=== PATIENT | male | born 1970 ===

== ENCOUNTER 2018-09-27 13:28 | Inpatient (IN) | payer SELFPAY ==
[~2018-09-27 13:28] MED LIST: ISOVUE-370 76%-LOCM 1 ML ONE; Iopamidol 370 76% 100 ML VIAL ONE
--- NOTE | 2018-09-27 13:54 | CT ---
CT HEAD WITHOUT IV CONTRAST COMPARISON: None HISTORY: Right-sided weakness. TECHNIQUE: Axial CT imaging at 5 mm intervals from vertex through skull base without contrast FINDINGS: There are low-density areas seen within the left basal ganglia with largest low-density area seen wit hin the anterior aspect left basal ganglia centered in the region of the anterior limb left internal capsule as well as anterior portion of the lentiform nucleus likely related to a lacunar inf arction of indeterminate age but possibly more recent in origin. There is also curvilinear area of diminished attenuation within the left anterior frontal lobe which also is likely due to an infarctio n of indeterminate age. Smaller low-density focus is present in the left lentiform nucleus related to a lacunar infarction of indeterminate age. No large acute cortical infarction, hemorrhage, mass ef fect, or midline shift is present. Artifact is seen in the region of the maki limiting adequate evaluation. Low-density areas seen in the inferior right basal ganglia probably due to dilated periva scular space versus remote lacunar infarction. The ventricular system is normal in size, shape, and position. Visualized paranasal sinuses are clear. Osseous structures appear intact. IMPRESSION: 1. Findings most likely attributable to infarctions in the left basal ganglia suggesting lacunar infa rctions of indeterminate age as described above in addition to indeterminate age infarction involving the left frontal lobe white matter. Although the exact ages of these infarctions is difficu lt to determine, findings are likely more recent in origin. However, MRI of the brain is suggested for further evaluation. 2. Above findings discussed Dr. Morales in the emergency department on 09/27/2018 at 1341 hours.
[2018-09-27] MEDS ORDERED: Heparin 10,000 UNITS/1 ML VIAL ONE (14:09)
--- NOTE | 2018-09-27 14:11 | CT ---
CTA of the head with and without IV contrast and 3-D reformatted imaging. CTA of the neck with IV contrast and 3-D reformatted imaging 3 D Volume Rendering: DATE: 09/27/2018 12:00 AM HISTORY: Right-sided weakness COMPARISON: Noncontrast CT head on 09/27/2018. FINDINGS: As noted on the noncontrast CT of the head, there is a low-density area involving the left basal gang trey and left anterior frontal lobe in the distribution of left middle cerebral artery compatible with infarction which is likely more recent in origin. Right: CCA:No significant stenosis. ICA:No significant stenosis. MCA:No significant stenosis. BOB:No significant stenosis. STEAM PRESS TENDER:No significant stenosis. LEFT: CCA:No significant stenosis. ICA:No significant stenosis. MCA:There is a filling defect seen within the distal M1 segment left middle cerebral artery suggestin g embolus/thrombus. There is contrast seen within the M2 and M3 segments of the left middle cerebral artery. BOB:No significant stenosis. STEAM PRESS TENDER:No significant stenosis. Vertebrobasilar System: Left Vertebral:No significant stenosis. Right Vertebral:No significant stenosis. Basilar:No significant stenosis. Minimal emphysematous changes are seen within the otherwise upper lobes bilaterally. IMPRESSION: 1. Filling defect within the distal M1 segment left middle cerebral artery suggesting thrombus/embolu s. 2. Infarction in the distribution of the left middle cerebral artery with low density area in the lef t basal ganglia and left anterior frontal lobe with a small low-density focus in the lentiform nucleus related to a lacunar infarction. These infarctions are likely more recent in origin. 3. Above findings discussed with Dr. Morales in the emergency department on 09/27/2018 at 1401 hours.
[2018-09-27 14:16] LABS: Hemoglobin 12.3 g/dL (14.0-18.0); Mean Corpuscular HGB CONC 33.9 g/dL (32.0-36.0); Mean Corpuscular Hemoglobin 38.4 pg (27.0-31.0); Mean Platelet Volume 7.8 fL (7.4-10.4); Platelet Count 220 thou/uL (130-400); RBC Distribution Width 14.2 % (11.5-14.5); Red Blood Cell (RBC) Count 3.21 mill/uL (4.70-6.10); White Blood Cell (WBC) Count 6.6 thou/uL (4.8-10.8)
[2018-09-27 14:21] LABS: INR-International Normal Ratio 1.2; PTT 29.4 SEC (22.9-36.1); Prothrombin Time 15.5 SEC (12.0-14.7)
[2018-09-27] MEDS ORDERED: Lidocaine 1% (PF) 30 ML VIAL ONE (14:28)
[2018-09-27 14:42] LABS: ALT (SGPT) 8 U/L (8-55); AST (SGOT) 21 U/L (5-34); Albumin 3.7 g/dL (3.5-5.0); Alkaline Phosphatase 79 U/L (40-150); Anion Gap 13 mmol/L (10-20); BUN (Urea Nitrogen) 9 mg/dL (8.9-20.6); Bilirubin, Total 0.6 mg/dL (0.2-1.2); Calc. Creatinine Clearance 0 mL/min (70-130); Calcium 8.7 mg/dL (7.8-10.44); Carbon Dioxide 28 mmol/L (22-29); Chloride 98 mmol/L (98-107); Estimated GFR-MDRD 90; Globulin 2.3 g/dL (2.4-3.5); Glucose 87 mg/dL (70-105); Potassium 4.5 mmol/L (3.5-5.1); Sodium 134 mmol/L (136-145)
[2018-09-27] MEDS ORDERED: Phenylephrine HCL 10 MG/ML VIAL ONE (14:47)
[2018-09-27] MEDS ORDERED: Nitroglycerin 100MG/250ML BOT 0 ML ONE (14:47)
[2018-09-27 14:53] LABS: #Basophils 0.1 thou/uL (0.0-0.2); #Eosinphils 0.1 thou/uL (0.0-0.7); #Lymphocytes 1.5 thou/uL (1.20-3.40); #Monocytes 0.3 thou/uL (0.11-0.59); #Neutrophils 4.7 thou/uL (1.40-6.50); %Basophils 1.8 % (0.0-1.0); %Eosinophils 0.8 % (0.0-10.0); %Lymphocytes 22.3 % (21.0-51.0); %Monocytes 3.8 % (0.0-10.0); %Neutrophils 71.3 % (42.0-75.0); MDiff Complete? YES; Macrocytosis SLIGHT = 6-15 cells (100X) (0-5/hpf); Platelet Morphology Comment Appears Adequate
[2018-09-27] MEDS ORDERED: Fentanyl 100 MCG/2 ML VIAL ONE (15:01)
[2018-09-27] MEDS ORDERED: Communication Order-Pharmacy FS ONE ×2 (15:08→20:49)
[2018-09-27] MEDS ORDERED: Labetalol HCl 100 MG/20 ML VIAL SLOW IVP PRN (15:08)
--- NOTE | 2018-09-27 15:38 | PRG ---
DATE OF SERVICE: 09/27/2018 Mr. Alicea is a 48-year-old gentleman, who presented to the ER with aphasia and right hemiparesis. He had a noncontrast head CT, which was negative for hemorrhage. He had a CT angiogram, which showed a thrombus within the left middle cerebral artery. He was administered tPA in ER. He was then taken to the civil laboratory technician, where he underwent an initial conventional angiogram, which showed resolution of the clot by the time he had reached the civil laboratory technician. Therefore, there was no need for mechanical thrombectomy. We have no family available. He is unable to communicate in any effective way. As such, we have little to no known medical history at this point in time. We will now admit him to the ICU for observation. We will consult the hospitalist service for ongoing medical management. We will check a head CT in the morning to evaluate for post tPA hemorrhage or stroke. Job ID: [id number]
[2018-09-27 16:22] LABS: Anion Gap 12 mmol/L (10-20); BUN (Urea Nitrogen) 8 mg/dL (8.9-20.6); Calc. Creatinine Clearance 120 mL/min (70-130); Calcium 9.1 mg/dL (7.8-10.44); Carbon Dioxide 26 mmol/L (22-29); Chloride 102 mmol/L (98-107); Estimated GFR-MDRD Greater than 90; Glucose 95 mg/dL (70-105); Potassium 4.2 mmol/L (3.5-5.1); Sodium 136 mmol/L (136-145)
[2018-09-27 16:52] LABS: Amphetamine Detected (NotDetected); Barbiturates Screen Not Detected (NotDetected); Benzodiazepine Screen Not Detected (NotDetected); Cocaine Metabolite Screen Not Detected (NotDetected); Medtox Control Line Valid? VALID (VALID); Medtox Reader # READER 1; Methadone Not Detected (NotDetected); Methamphetamine Detected (NotDetected); Opiate Screen Not Detected (NotDetected); Oxycodone Screen Not Detected (NotDetected); Phencyclidine (PCP) Not Detected (NotDetected); THC/Cannabinoid Screen Not Detected (NotDetected); Tricyclic Screen Not Detected (NotDetected)
[2018-09-27] MEDS ORDERED: Acetaminophen 500 MG TAB PO PRN (16:57)
[2018-09-27] MEDS ORDERED: Ondansetron PF 4 MG/2 ML Vial IVP PRN (16:57)
[2018-09-27] MEDS: Sodium Chloride 0.9% 1,000 ML IV SCH (17:03)
--- NOTE | 2018-09-27 19:20 | CCL ---
RADIOLOGY PROCEDURE NOTE: DATE: SURGEON: Clive Jc M.D. MOLD CAPPER: None. INDICATION: Ischemic stroke. DIAGNOSIS: Left M1 thrombus. PROCEDURE: Cerebral angiography. ANESTHESIA: Local. TECHNIQUE: The patient was brought into the angiogram suite and placed on the table in the supine position. Both groins were prepped and draped in the usual sterile fashion. 1% lidocaine was used to inject the rig ht groin. A 5 Bruneian Micropuncture set was then used to gain access to the right common femoral arter y. Using the Seldinger technique, an 8 Bruneian sheath was placed. A 5 Bruneian diagnostic catheter passe d over a [employer] guidewire was then selectively placed into the left internal carotid artery where an AP and lateral angiogram was performed. The previously noted occlusion in the left MCA branch at the M1 segment has resolved with normal confucianist of flow into the distal vasculature with normal fill ing of the middle cerebral artery branches. No mechanical thrombectomy procedure was performed. The p rocedure came to an end without complication. The sheath was sewn into place secondary to recent admi nistration of TPA. IMPRESSION: The patient underwent successful angiography which revealed the presence of confucianist of flow into the left middle cerebral artery. No mechanical thrombectomy was performed.
[2018-09-27] MEDS ORDERED: Mag-Al 1200 mg/1200 mg/30 ML UDCUP PO PRN (20:49)
[2018-09-27] MEDS ORDERED: Docusate 100 MG CAP PO PRN (20:49)
--- NOTE | 2018-09-27 21:09 | CON ---
DATE OF CONSULTATION: HISTORY OF PRESENT ILLNESS: This is a 48-year-old gentleman, who is in the ICU. He presented with sudden onset of weakness early this morning with aphasia. Stroke alert was called. He was brought in by EMS. CT of head and CT of angio were done as outlined, showed what appeared to be a thrombus without any hemorrhage in the left middle cerebral artery. He underwent tPA as per protocol, seen by Neurosurgery, Dr. Clive Jc, went to the bolt labeler, but thrombus had since resolved. Now in the ICU. The patient is awake, alert, and responsive. In fact, he is able to move his right side appropriately. His speech is coming back somewhat. PAST MEDICAL HISTORY: He tells me past medical history. No history of diabetes or hypertension. PAST SURGICAL HISTORY: None. CHRONIC MEDICATION: None. ALLERGIES: NONE. SOCIAL HISTORY: Work, unknown at this time. Alcohol and tobacco, none. REVIEW OF SYSTEMS: Otherwise 10-point grossly unremarkable. PHYSICAL EXAMINATION: GENERAL: Awake, alert, and responsive. EXTREMITIES: As noted, moves all 4 extremities. VITAL SIGNS: Sats 96% on room air, pulse blood pressure 120/80, respirations 18. CHEST: No wheezing or crackles. CARDIAC: Normal S1 and S2. No gallops. ABDOMEN: No mass. LABORATORY DATA: Sodium 134. Otherwise lytes are normal. White count H and H are 12 and 36. IMPRESSION: Status post tPA for a right-sided weakness, secondary to left MCA thrombus. PLAN: Pulmonary Critical Care will follow while in the ICU. He is on nicardipine for blood pressure control measures. We will talk to Dr. alvarado as they arrive. Consultation note in the ICU, 70 minutes, 50% direct patient care. Job ID: [id number]
[2018-09-27] MEDS: Atorvastatin Calcium 40 MG TAB PO SCH (22:57)
--- NOTE | 2018-09-28 00:45 | CON ---
DATE OF CONSULTATION: 09/27/2018 REASON FOR CONSULTATION: Medical management. CHIEF COMPLAINT: Right-sided weakness. HISTORY OF PRESENT ILLNESS: The patient is a 48-year-old male with unknown past medical history, who presented to the ED via EMS with complaints of stroke. Per EMS, the patient was unable to speak when they arrived. EMS noted the patient had right-sided weakness, and was brought to the emergency room for further evaluation and treatment. CT scan of the brain was negative for any acute bleed. His NIH scale in the ER was 11 initially. CTA of the head and neck revealed a filling defect within the distal M1 segment left MCA suggesting thrombus/embolus. The patient was administered tPA. Dr. Jc took him to the laborer pipelines, where angiogram revealed resolution of the thrombus. He is seen immediately postoperatively in the CCU. The patient is easily arousable and is able to follow some commands and answer some questions appropriately, although does remain altered. Regarding his right-sided deficits, they are almost completely resolved. REVIEW OF SYSTEMS/PAST MEDICAL HISTORY/PAST SURGICAL HISTORY: Unable to be obtained at this time secondary to the patient's altered mental status. PHYSICAL EXAMINATION: VITAL SIGNS: Blood pressure 162/91, pulse is 64, O2 saturation 97% on room air, temperature 98. GENERAL: This is a thin male, who appears stated age, resting in bed in CCU, in no distress. HEENT: Head is atraumatic and normocephalic. NECK: Supple. Trachea is midline. No JVD. CV: S1 and S2. Regular rate and rhythm. No appreciable murmurs, rubs, or gallops. LUNGS: Regular respiratory rate and pattern, overall clear to auscultation bilaterally. ABDOMEN: Soft. Positive bowel sounds. EXTREMITIES: No edema, sheath is in place in right groin. NEUROLOGIC: The patient has grossly equal strength in his upper and lower extremities bilaterally. His NIH Stroke Scale is 9 at this time. LABORATORY DATA: White blood cell count 6.6, hemoglobin 12.3, hematocrit 36.3, platelets are 220. PT 15.5, INR 1.2, PTT 29.4. Sodium 136, potassium 4.2, chloride 102, anion gap 12, creatinine 0.73. AST, ALT, alkaline phosphatase all within normal limits. Troponin less than 10. Urine drug screen showed positive for amphetamines and methamphetamines. ASSESSMENT: 1. Acute left middle cerebral artery cerebrovascular accident with thrombus/ embolus evident per CTA, status post tPA administration. Resolution of thrombus per angio. 2. Hypertension. 3. Tox screen positive for amphetamines/methamphetamines. PLAN: At this time, we will continue p.r.n. labetalol and nicardipine for hypertension following permissive hypertension parameters. Dysphagia screening prior to any oral medication administration. Start statin, and ASA after appropriate hold post tPA. No blood draws x24 hours status post tPA. Neurology has been consulted, and we will also consult stroke team. CT brain in am. Further recommendations based on hospital course. Job ID: [id number] VAISHALI
[2018-09-28] MEDS: Sodium Chloride 0.9% 1,000 ML IV SCH ×2 (01:43→14:03)
[2018-09-28 04:48] LABS: #Eosinphils 0.1 thou/uL (0.0-0.7); #Lymphocytes 1.3 thou/uL (1.20-3.40); #Monocytes 0.3 thou/uL (0.11-0.59); %Basophils 0.1 % (0.0-1.0); %Eosinophils 1.2 % (0.0-10.0); %Lymphocytes 16.8 % (21.0-51.0); Hemoglobin 13.2 g/dL (14.0-18.0); Mean Corpuscular Hemoglobin 38.4 pg (27.0-31.0); Mean Platelet Volume 7.9 fL (7.4-10.4); Platelet Count 243 thou/uL (130-400); RBC Distribution Width 14.1 % (11.5-14.5); Red Blood Cell (RBC) Count 3.43 mill/uL (4.70-6.10); White Blood Cell (WBC) Count 7.6 thou/uL (4.8-10.8)
[2018-09-28 05:07] LABS: Cardiac Risk 4.3 (Less than 4.5)
--- NOTE | 2018-09-28 07:52 | CT ---
PRELIMINARY REPORT/[facility]/EMERGENCY AFTER HOURS PROCEDURE: Addendum created by Fidel Jeffery MD on 09/28/2018 4:35 AM Central Time ( & [place]) Findings discu ssed with Leisa Cortez RN at time of interpretation. Initial Report created on 09/28/2018 4:18 AM [place] tral Time ( & Camila) EXAM: CT Head Without Contrast EXAM DATE/TIME: 09/28/2018 3:00 AM CLINICAL HISTORY: 48 years old, male; Abnormal findings; Abnormal radiologic findings of head/skull; Not specified; Patient HX: F/u CVA PT. Tpa given TECHNIQUE: Imaging protocol: Axial computed tomography images of the head without contrast. COMPARISON: CT Brain WO Con 09/27/2018 1:33 PM FINDINGS: Brain: Stable mild multifocal edema in the left MCA territory consistent with subacute infarction. Stable subjectively hyperdense left M2 branch suggests clot. Subtle hyperdensity in the cortex of the left frontal lobe is suspicious for mild subarachnoid hemorrhage. Midline shift: No midline shift. Ventricles: Normal. No ventriculomegaly. Bones/joints: Unremarkable. No acute fracture. Sinuses: Visualized sinuses are unremarkable. No fluid levels. Mastoid air cells: Visualized mastoid air cells are well aerated. No mastoid effusion. Soft tissues: Unremarkable. IMPRESSION: 1. Stable mild multifocal edema in the left MCA territory consistent with subacute infarction. Stable subjectively hyperdense left M2 branch suggests clot. 2. Subtle hyperdensity in the cortex of the left frontal lobe is suspicious for mild subarachnoid hem orrhage. Thank you for allowing us to participate in the care of your patient. Dictated and Authenticated by: Fidel Jeffery MD 09/28/2018 4:18 AM Central Time ( & Camila) FINAL REPORT EMERGENCY AFTER HOURS CT BRAIN PERFORMED WITHOUT CONTRAST ENHANCEMENT: Date: 09/28/18 HISTORY: Follow-up CVA. Patient status post TPA. COMPARISON: Prior day's study. FINDINGS: Ventricular and cisternal system is within normal limits. Decreased attenuation of the left middle ce rebral artery territory consistent with a subacute infarct. No signs of intracerebral hemorrhage or e xtra-axial fluid collection. There is some slight increased attenuation to the M2 and sylvian branche s of the MCA which could indicate clot. IMPRESSION: 1. Findings suggesting a left MCA subacute infarct. 2. The question was raised of some subtle subarachnoid blood over the left frontal lobe. This is equ ivocal. Follow-up would be recommended. This report is in agreement with the preliminary report issued by [facility]. POS: [facility]
[2018-09-28] MEDS ORDERED: Sodium Chloride 0.65% Nasal 44 ML BOT EA NARE PRN (08:02)
[2018-09-28] MEDS ORDERED: Artificial Tears 18 DROP/0.9 ML EA EYE PRN (08:02)
[2018-09-28] MEDS ORDERED: Bisacodyl 10 MG SUPP PR PRN (08:02)
--- NOTE | 2018-09-28 08:03 | CT ---
CT OF THE BRAIN WITHOUT CONTRAST: Date: 09/28/18 COMPARISON: 09/28/18 at 0301 hours. HISTORY: Right-sided weakness. Patient given TPA yesterday. TECHNIQUE: Multiple contiguous axial images were obtained in a CT of the brain without contrast. FINDINGS: There is hypodensity in the left basal ganglia, unchanged. Hypodensity is also seen in the anterior a spect of the left MCA distribution. No intracranial hemorrhage or intraventricular hemorrhage is seen . No extra-axial fluid collection is seen. The calvarium and overlying soft tissues are unremarkable. The visualized paranasal sinuses are well aerated. IMPRESSION: Ongoing infarction in left MCA distribution without evidence of hemorrhagic conversion. POS: [facility]
--- NOTE | 2018-09-28 08:48 | PRG ---
DATE OF SERVICE: 09/28/2018 SUBJECTIVE: This morning, he is awake, responsive. He is not moving his right side. His CT brain this morning shows evidence of ongoing left MCA distribution infarct. OBJECTIVE: VITAL SIGNS: Blood pressure 142/89, pulse 101, temperature 98, respirations 14. CHEST: Decreased breath sounds. No wheezing. CARDIAC: Normal S1, S2. No gallops. ABDOMEN: No masses. LABORATORY DATA: He had a drug screen done, which shows amphetamines and methamphetamines. IMPRESSION: 1. Acute cerebrovascular accident, left-sided, with right-sided weakness. 2. Substance abuse. 3. Hypertension. PLAN: Pulmonary will follow in the ICU. Continue present supportive care. Start aspirin. We will follow while in the ICU. Job ID: [id number]
[2018-09-28] MEDS ORDERED: Aspirin 325 mg Enteric Coated Tablet PO SCH (09:00)
[2018-09-28] MEDS ORDERED: Aspirin 300 MG Suppository PR SCH (09:00)
[2018-09-28] MEDS: Aspirin 325 MG TAB PO SCH (09:03)
--- NOTE | 2018-09-28 11:30 | PDOC.PN ---
- Subjective Encounter Start Date: 09/28/18 Encounter Start Time: 07:15 -: old records requested/rev Patient seen and examined. No overnight events, pt has CVA and he was given TPA , he did not require mechanical thrombectomy - Objective MAR Reviewed: Yes Vital Signs & Weight: Vital Signs (12 hours) Temp Pulse Ox 09/28/18 09:00 98.7 F 09/28/18 08:00 98.2 F 100 09/28/18 05:00 98.5 F 09/28/18 04:00 98 09/28/18 02:00 98.4 F Weight Weight 151 lb 0.266 oz Most Recent Monitor Data Heart Rate from ECG 68 NIBP 105/66 NIBP BP-Mean 79 Respiration from ECG 19 SpO2 100 I&O: 09/27/18 09/28/18 09/29/18 06:59 06:59 06:59 Intake Total 904 0 Output Total 1100 200 Balance -196 -200 Result Diagrams: 09/28/18 03:30 09/27/18 15:58 Additional Labs: Accuchecks 09/27/18 13:34 POC Glucose 128 H Radiology Reviewed by me: Yes EKG Reviewed by me: Yes (nsr) Phys Exam - Physical Examination Constitutional: NAD HEENT: PERRLA, moist MMs, sclera anicteric Neck: no JVD, supple Respiratory: no wheezing, no rales, no rhonchi Cardiovascular: RRR, no significant murmur, no rub Gastrointestinal: soft, non-tender, no distention, positive bowel sounds Musculoskeletal: no edema, pulses present right side weakness, aphasia Lymphatic: no nodes Psychiatric: normal affect Skin: no rash, normal turgor Dx/Plan (1) Acute ischemic left middle cerebral artery (MCA) stroke Code(s): I63.512 - CEREB INFRC D/T UNSP OCCLS OR STENOS OF LEFT MID CEREB ART Status: Acute Comment: s/p TPA (2) Amphetamine abuse Code(s): F15.10 - OTHER STIMULANT ABUSE, UNCOMPLICATED Status: Acute (3) Macrocytic anemia Code(s): D53.9 - NUTRITIONAL ANEMIA, UNSPECIFIED Status: Acute - Plan cont current plan of care, PT/OT, speech therapy, DVT proph w/SCDs * neurology consulted * echo ordered * 24 hour in CCU after TPA * repeat CT brain today is showing evolving infract and no h'ge * no family bedside * sheath will be removed later today * medication reviewed as below * symptomatic treatment. Review of Systems - Review of Systems Other: unable to review as pt is aphasic and not following command well - Medications/Allergies Allergies/Adverse Reactions: Allergies Allergy/AdvReac Type Severity Reaction Status Date / Time No Known Allergies Allergy Unverified 09/27/18 16:04 Medications: Current Medications Acetaminophen (Tylenol) 1,000 mg PO Q6H PRN PRN Reason: Mild Pain (1-3) Al Hydroxide/Mg Hydroxide (Maalox) 30 ml PO QID-WM PRN PRN Reason: Dyspepsia Artificial Tears (Tears Naturale) 2 drop EA EYE PRN PRN PRN Reason: Dry Eyes Aspirin (Aspirin) 325 mg PO DAILY [facility] Last Admin: 09/28/18 09:03 Dose: Not Given Atorvastatin Calcium (Lipitor) 40 mg PO HS [facility] Last Admin: 09/27/18 22:57 Dose: Not Given Bisacodyl (Dulcolax) 10 mg [place] DAILYPRN PRN PRN Reason: Constipation Docusate Sodium (Colace) 100 mg PO BIDPRN PRN PRN Reason: Constipation Nicardipine HCl 25 mg/ Sodium (Chloride) 260 mls @ 0 mls/hr IVPB INF PRN; Protocol PRN Reason: SBP > 180 or DBP > 105 Sodium Chloride (Normal Saline 0.9%) 1,000 mls @ 80 mls/hr IV .[id number] [facility] Last Admin: 09/28/18 01:43 Dose: 1,000 mls Labetalol HCl (Normodyne) 10 mg SLOW IVP Q2H PRN PRN Reason: SBP > 180 or DBP > 105 Ondansetron HCl (Zofran) 4 mg IVP Q6H PRN PRN Reason: Nausea/Vomiting Sodium Chloride ([place] Nasal [place] 0.65%) 0 ml EA NARE QIDPRN PRN PRN Reason: Nasal Congestion Sodium Chloride (Flush - Normal Saline) 10 ml IVF Q12HR [facility] Last Admin: 09/28/18 09:02 Dose: 10 ml Sodium Chloride (Flush - Normal Saline) 10 ml IVF PRN PRN PRN Reason: Saline Flush
[2018-09-28] MEDS: Atorvastatin Calcium 40 MG TAB PO SCH (19:06)
--- NOTE | 2018-09-28 22:43 | CON ---
DATE OF CONSULTATION: 09/28/2018 CONSULTING PHYSICIAN: Hospitalist Service. IMPRESSION: Partial left middle cerebral artery stroke secondary to methamphetamine use status post tPA. PLAN: 1. Aspirin and a statin. 2. The patient can be moved to step-down floor. HISTORY OF PRESENT ILLNESS: Mr. Alicea is a 48-year-old man with a known history of drug use. He apparently was at [facility] not long ago with symptoms of a stroke. He left AMA. He presented again to us with complaints of aphasia and right-sided weakness. His CT angiogram did not show a lesion that was amenable to thrombectomy. He was administered tPA. He has been admitted to the intensive care unit. His echocardiogram showed a 50% to 55% ejection fraction. His followup CT showed a subcortical area of ischemia in the left deep MCA territory. His cholesterol level ratio was 4.3. PAST MEDICAL HISTORY: Otherwise unknown. FAMILY HISTORY: Unknown. SOCIAL HISTORY: Positive for drug use. ALLERGIES: NONE KNOWN. REVIEW OF SYSTEMS: Not obtainable due to his aphasia. PHYSICAL EXAMINATION: GENERAL: He is a thin, middle-aged man, lying in bed, in no distress. VITAL SIGNS: Blood pressure 130/66, pulse 67 and sinus rhythm. Saturations 99%. Respirations 15. HEENT: Pupils are equal. Conjunctivae clear. Oropharynx clear. Cranium, normocephalic and atraumatic. NECK: No lymphadenopathy. EXTREMITIES: No cyanosis or edema. NEUROLOGIC: He awakened to stimulation. He was unable to verbalize anything other than the word no. It is difficult to say whether he was comprehending commands or being obstinate. He had a right facial droop. There was right arm and leg weakness. Plantar response was upgoing on the right and downgoing on the left. No abnormal movements were seen. Gait was not testable. SUMMARY: This is a middle-aged man with left penetrator vessel MCA stroke status post tPA with residual neurologic deficits. His workup otherwise is unremarkable. I agree with your current care. Hopefully with time, his deficits will improve. Job ID: [id number]
[2018-09-29] MEDS: Sodium Chloride 0.9% 1,000 ML IV SCH ×3 (07:30→18:06)
--- NOTE | 2018-09-29 09:28 | PRG ---
DATE OF SERVICE: 09/29/2018 SUBJECTIVE: Ryan Alicea this morning, he is awake, alert, and responsive. He is moving all 4 extremities equally. He has weakness on his right side. OBJECTIVE: VITAL SIGNS: Blood pressure 116/78 room air. CHEST: Decreased breath sounds. No wheezing. CARDIAC: Normal S1 and S2. No gallops. IMPRESSION: CVA, substance abuse. PLAN: The patient can be transferred out of the ICU to stroke unit. Speech is being consulted. Pulmonary will follow while in the ICU. Continue PT, speech. Job ID: [id number]
[2018-09-29] MEDS ORDERED: hydrALAZINE 20 MG/ML VIAL SLOW IVP PRN (10:40)
[2018-09-29] MEDS ORDERED: Senokot S 8.6-50 MG TAB PO PRN (10:40)
[2018-09-29] MEDS ORDERED: Loperamide HCl 2 MG CAP PO PRN (10:40)
[2018-09-29] MEDS ORDERED: Loratadine 10 MG TAB PO PRN (10:40)
[2018-09-29] MEDS ORDERED: Cepastat Lozenges 1 LOZ PO PRN (10:40)
[2018-09-29] MEDS ORDERED: Ondansetron ODT 4 MG TAB PO PRN (10:40)
[2018-09-29] MEDS ORDERED: Bisacodyl 10 MG SUPP PR PRN (10:40)
[2018-09-29] MEDS ORDERED: Diabetic Tussin 200 MG/10 ML UDCUP PO PRN (10:40)
[2018-09-29] MEDS: Aspirin 325 MG TAB PO SCH (10:41)
--- NOTE | 2018-09-29 11:10 | PDOC.PN ---
- Subjective Encounter Start Date: 09/29/18 Encounter Start Time: 09:50 Patient seen and examined. No new complaints. No overnight events - Objective MAR Reviewed: Yes Vital Signs & Weight: Vital Signs (12 hours) Temp Pulse Pulse BP BP Pulse Ox Pulse Ox 09/29/18 08:35 91 52 L 100/66 124/76 100 09/29/18 08:00 98.4 F 09/29/18 07:38 100 09/29/18 04:00 98.8 F 09/29/18 00:00 99.1 F Pulse Ox 09/29/18 08:35 100 09/29/18 08:00 09/29/18 07:38 09/29/18 04:00 09/29/18 00:00 Weight Admit Weight 151 lb 0.266 oz Weight 142 lb 3.17 oz Most Recent Monitor Data Heart Rate from ECG 59 NIBP 100/68 NIBP BP-Mean 78 Respiration from ECG 17 SpO2 100 I&O: 09/28/18 09/29/18 09/30/18 06:59 06:59 06:59 Intake Total 904 1792 Output Total 1100 1462 200 Balance -196 330 -200 Result Diagrams: 09/28/18 03:30 09/27/18 15:58 Radiology Reviewed by me: Yes (echo normal) EKG Reviewed by me: Yes (nsr) Phys Exam - Physical Examination Constitutional: NAD HEENT: PERRLA, moist MMs, sclera anicteric Neck: no JVD, supple Respiratory: no wheezing, no rales, no rhonchi Cardiovascular: RRR, no significant murmur, no rub Gastrointestinal: soft, non-tender, no distention, positive bowel sounds Musculoskeletal: no edema, pulses present right side weakness, aphasia, dysphagia Psychiatric: normal affect, A&O x 3 Skin: no rash, normal turgor Dx/Plan (1) Acute ischemic left middle cerebral artery (MCA) stroke Code(s): I63.512 - CEREB INFRC D/T UNSP OCCLS OR STENOS OF LEFT MID CEREB ART Status: Acute Comment: s/p TPA (2) Amphetamine abuse Code(s): F15.10 - OTHER STIMULANT ABUSE, UNCOMPLICATED Status: Acute (3) Macrocytic anemia Code(s): D53.9 - NUTRITIONAL ANEMIA, UNSPECIFIED Status: Acute - Plan cont current plan of care, PT/OT, speech therapy, DVT proph w/lovenox, DVT proph w/SCDs * continue IVF * continue stroke team evaluation * continue aspirin and lipitor * discharge planning * medication reviewed as below * symptomatic treatment. Review of Systems - Review of Systems Other: unable to review due to aphasia - Medications/Allergies Allergies/Adverse Reactions: Allergies Allergy/AdvReac Type Severity Reaction Status Date / Time No Known Allergies Allergy Unverified 09/27/18 16:04 Medications: Current Medications Acetaminophen (Tylenol) 1,000 mg PO Q6H PRN PRN Reason: Mild Pain (1-3) Al Hydroxide/Mg Hydroxide (Maalox) 30 ml PO QID-WM PRN PRN Reason: Dyspepsia Artificial Tears (Tears Naturale) 2 drop EA EYE PRN PRN PRN Reason: Dry Eyes Aspirin (Aspirin) 325 mg PO DAILY [facility] Last Admin: 09/29/18 10:41 Dose: 325 mg Atorvastatin Calcium (Lipitor) 40 mg PO HS [facility] Last Admin: 09/28/18 19:06 Dose: Not Given Bisacodyl (Dulcolax) 10 mg [place] DAILYPRN PRN PRN Reason: Constipation Bisacodyl (Dulcolax) 10 mg [place] DAILYPRN PRN PRN Reason: Constipation Docusate Sodium (Colace) 100 mg PO BIDPRN PRN PRN Reason: Constipation Enoxaparin Sodium (Lovenox) 40 mg SC 0900 [facility] Guaifenesin (Robitussin Sf) 200 mg PO Q4H PRN PRN Reason: Cough Hydralazine HCl (Apresoline) 10 mg SLOW IVP Q4H PRN PRN Reason: SBP > 180 and HR < 70 Sodium Chloride (Normal Saline 0.9%) 1,000 mls @ 80 mls/hr IV .[id number] [facility] Last Admin: 09/29/18 07:30 Dose: Not Given Labetalol HCl (Normodyne) 10 mg SLOW IVP Q2H PRN PRN Reason: SBP > 180 or DBP > 105 Loperamide HCl (Imodium) 2 mg PO PRN PRN PRN Reason: Diarrhea/Loose Stools Loratadine (Claritin) 10 mg PO DAILYPRN PRN PRN Reason: Sinus Symptoms Ondansetron HCl (Zofran) 4 mg IVP Q6H PRN PRN Reason: Nausea/Vomiting Ondansetron HCl (Zofran Odt) 4 mg PO Q6H PRN PRN Reason: Nausea/Vomiting Senna/Docusate Sodium (Senokot S) 2 tab PO BID PRN PRN Reason: Constipation Sodium Chloride ([place] Nasal [place] 0.65%) 0 ml EA NARE QIDPRN PRN PRN Reason: Nasal Congestion Sodium Chloride (Flush - Normal Saline) 10 ml IVF Q12HR [facility] Last Admin: 09/29/18 08:42 Dose: 10 ml Sodium Chloride (Flush - Normal Saline) 10 ml IVF PRN PRN PRN Reason: Saline Flush Throat Lozenges (Cepastat Lozenges) 1 jessica PO Q2H PRN PRN Reason: Sore Throat
[2018-09-29] MEDS: Atorvastatin Calcium 40 MG TAB PO SCH (21:08)
[2018-09-30] MEDS: Sodium Chloride 0.9% 1,000 ML IV SCH ×2 (04:25→17:20)
--- NOTE | 2018-09-30 07:58 | PRG ---
DATE OF SERVICE: 09/30/2018 SUBJECTIVE: Ryan Alicea this morning, is awake, alert, and responsive. He is in no distress. OBJECTIVE: VITAL SIGNS: Blood pressure 155/86, pulse 65, saturations are 100% on room air, and respirations 18. CHEST: No wheezing or crackles. CARDIAC: Normal S1 and S2. No gallops. ABDOMEN: No masses. IMPRESSION AND PLAN: Status post cerebrovascular accident with residual weakness, right sided. Speech was supposed to see the patient. It is unclear what transpired. The patient can be probably transferred out of the ICU. Pulmonary will follow while in the ICU. Continue low-dose aspirin. Job ID: [id number]
[2018-09-30] MEDS: Enoxaparin Sodium 40 MG/0.4 ML SYRINGE SC SCH (09:14)
[2018-09-30] MEDS: Aspirin 325 MG TAB PO SCH (09:14)
--- NOTE | 2018-09-30 12:59 | PDOC.PN ---
- Subjective Encounter Start Date: 09/30/18 Encounter Start Time: 10:45 Patient seen and examined. No new complaints. No overnight events - Objective MAR Reviewed: Yes Vital Signs & Weight: Vital Signs (12 hours) Temp Pulse Pulse BP BP 09/30/18 09:10 94 86 128/78 118/71 09/30/18 08:00 98.3 F 09/30/18 04:00 98.2 F Weight Admit Weight 151 lb 0.266 oz Weight 142 lb 3.17 oz Most Recent Monitor Data Heart Rate from ECG 69 NIBP 118/71 NIBP BP-Mean 86 Respiration from ECG 17 SpO2 100 I&O: 09/29/18 09/30/18 10/01/18 06:59 06:59 06:59 Intake Total 1792 1900 Output Total 1462 200 200 Balance 330 1700 -200 Result Diagrams: 09/28/18 03:30 09/27/18 15:58 EKG Reviewed by me: Yes (nsr) Phys Exam - Physical Examination Constitutional: NAD HEENT: PERRLA, moist MMs, sclera anicteric Neck: no JVD, supple Respiratory: no wheezing, no rales, no rhonchi Cardiovascular: RRR, no significant murmur, no rub Gastrointestinal: soft, non-tender, no distention, positive bowel sounds Musculoskeletal: no edema, pulses present right side weakness, aphasia, oropharyngeal dysphagia Lymphatic: no nodes Psychiatric: normal affect Skin: no rash, normal turgor Dx/Plan (1) Acute ischemic left middle cerebral artery (MCA) stroke Code(s): I63.512 - CEREB INFRC D/T UNSP OCCLS OR STENOS OF LEFT MID CEREB ART Status: Acute Comment: s/p TPA (2) Amphetamine abuse Code(s): F15.10 - OTHER STIMULANT ABUSE, UNCOMPLICATED Status: Acute (3) Macrocytic anemia Code(s): D53.9 - NUTRITIONAL ANEMIA, UNSPECIFIED Status: Acute - Plan cont current plan of care, PT/OT, speech therapy, DVT proph w/lovenox * medication reviewed as below * symptomatic treatment * continue stroke team evaluation * currently on aspirin, lipitor. Review of Systems - Review of Systems Other: unable to review due to aphasia - Medications/Allergies Allergies/Adverse Reactions: Allergies Allergy/AdvReac Type Severity Reaction Status Date / Time No Known Allergies Allergy Unverified 09/27/18 16:04 Medications: Current Medications Acetaminophen (Tylenol) 1,000 mg PO Q6H PRN PRN Reason: Mild Pain (1-3) Al Hydroxide/Mg Hydroxide (Maalox) 30 ml PO QID-WM PRN PRN Reason: Dyspepsia Artificial Tears (Tears Naturale) 2 drop EA EYE PRN PRN PRN Reason: Dry Eyes Aspirin (Aspirin) 325 mg PO DAILY [facility] Last Admin: 09/30/18 09:14 Dose: 325 mg Atorvastatin Calcium (Lipitor) 40 mg PO HS [facility] Last Admin: 09/29/18 21:08 Dose: 40 mg Bisacodyl (Dulcolax) 10 mg [place] DAILYPRN PRN PRN Reason: Constipation Bisacodyl (Dulcolax) 10 mg [place] DAILYPRN PRN PRN Reason: Constipation Docusate Sodium (Colace) 100 mg PO BIDPRN PRN PRN Reason: Constipation Enoxaparin Sodium (Lovenox) 40 mg SC 0900 [facility] Last Admin: 09/30/18 09:14 Dose: 40 mg Guaifenesin (Robitussin Sf) 200 mg PO Q4H PRN PRN Reason: Cough Hydralazine HCl (Apresoline) 10 mg SLOW IVP Q4H PRN PRN Reason: SBP > 180 and HR < 70 Sodium Chloride (Normal Saline 0.9%) 1,000 mls @ 80 mls/hr IV .[id number] [facility] Last Admin: 09/30/18 04:25 Dose: 1,000 mls Labetalol HCl (Normodyne) 10 mg SLOW IVP Q2H PRN PRN Reason: SBP > 180 or DBP > 105 Loperamide HCl (Imodium) 2 mg PO PRN PRN PRN Reason: Diarrhea/Loose Stools Loratadine (Claritin) 10 mg PO DAILYPRN PRN PRN Reason: Sinus Symptoms Ondansetron HCl (Zofran) 4 mg IVP Q6H PRN PRN Reason: Nausea/Vomiting Ondansetron HCl (Zofran Odt) 4 mg PO Q6H PRN PRN Reason: Nausea/Vomiting Senna/Docusate Sodium (Senokot S) 2 tab PO BID PRN PRN Reason: Constipation Sodium Chloride ([place] Nasal [place] 0.65%) 0 ml EA NARE QIDPRN PRN PRN Reason: Nasal Congestion Sodium Chloride (Flush - Normal Saline) 10 ml IVF Q12HR [facility] Last Admin: 09/30/18 09:14 Dose: 10 ml Sodium Chloride (Flush - Normal Saline) 10 ml IVF PRN PRN PRN Reason: Saline Flush Throat Lozenges (Cepastat Lozenges) 1 jessica PO Q2H PRN PRN Reason: Sore Throat
[2018-09-30] MEDS: Atorvastatin Calcium 40 MG TAB PO SCH (21:05)
[2018-10-01] MEDS: Sodium Chloride 0.9% 1,000 ML IV SCH ×2 (05:44→21:17)
--- NOTE | 2018-10-01 09:12 | EKG ---
Test Reason : STROKE Blood Pressure : / mmHG Vent. Rate : 066 BPM Atrial Rate : 066 BPM P-R Int : 140 ms QRS Dur : 102 ms QT Int : 432 ms P-R-T Axes : 055 079 068 degrees QTc Int : 452 ms Normal sinus rhythm Normal ECG Confirmed by GEE LALA DO ([id number]), editorial project manager JUAN JOHNSTON ([id number]) on 10/01/2018 9:11:59 AM Referred By: Confirmed By:GEE LALA DO
[2018-10-01] MEDS: Aspirin 325 MG TAB PO SCH (09:38)
[2018-10-01] MEDS: Enoxaparin Sodium 40 MG/0.4 ML SYRINGE SC SCH (09:38)
--- NOTE | 2018-10-01 11:01 | CT ---
CTA of the head with and without IV contrast and 3-D reformatted imaging. CTA of the neck with IV contrast and 3-D reformatted imaging 3 D Volume Rendering: DATE: 09/27/2018 12:00 AM HISTORY: Right-sided weakness COMPARISON: Noncontrast CT head on 09/27/2018. FINDINGS: As noted on the noncontrast CT of the head, there is a low-density area involving the left basal gang trey and left anterior frontal lobe in the distribution of left middle cerebral artery compatible with infarction which is likely more recent in origin. Right: CCA:No significant stenosis. ICA:No significant stenosis. MCA:No significant stenosis. BOB:No significant stenosis. HEALTH AND WELLNESS COORDINATOR:No significant stenosis. LEFT: CCA:No significant stenosis. ICA:No significant stenosis. MCA:There is a filling defect seen within the distal M1 segment left middle cerebral artery suggestin g embolus/thrombus. There is contrast seen within the M2 and M3 segments of the left middle cerebral artery. BOB:No significant stenosis. HEALTH AND WELLNESS COORDINATOR:No significant stenosis. Vertebrobasilar System: Left Vertebral:No significant stenosis. Right Vertebral:No significant stenosis. Basilar:No significant stenosis. Minimal emphysematous changes are seen within the otherwise upper lobes bilaterally. IMPRESSION: 1. Filling defect within the distal M1 segment left middle cerebral artery suggesting thrombus/embolu s. 2. Infarction in the distribution of the left middle cerebral artery with low density area in the lef t basal ganglia and left anterior frontal lobe with a small low-density focus in the lentiform nucleus related to a lacunar infarction. These infarctions are likely more recent in origin. 3. Above findings discussed with Dr. Morales in the emergency department on 09/27/2018 at 1401 hours. Transcribed Date/Time: 10/01/2018 11:01 AM
--- NOTE | 2018-10-01 11:19 | PDOC.PN ---
- Subjective Encounter Start Date: 10/01/18 Encounter Start Time: 08:15 Patient seen and examined. No new complaints. No overnight events - Objective MAR Reviewed: Yes Vital Signs & Weight: Vital Signs (12 hours) Temp Pulse Resp BP Pulse Ox 10/01/18 07:42 97.3 F L 66 16 103/69 95 10/01/18 04:00 98 F 55 L 16 116/71 100 10/01/18 00:05 97.9 F 66 16 119/66 99 Weight Admit Weight 151 lb 0.266 oz Weight 148 lb 11.2 oz Most Recent Monitor Data Heart Rate from ECG 73 NIBP 125/85 NIBP BP-Mean 98 Respiration from ECG 15 SpO2 100 I&O: 09/30/18 10/01/18 10/02/18 06:59 06:59 06:59 Intake Total 1900 1827 Output Total 200 700 Balance 1700 1127 Result Diagrams: 09/28/18 03:30 09/27/18 15:58 EKG Reviewed by me: Yes Phys Exam - Physical Examination Constitutional: NAD HEENT: PERRLA, moist MMs, sclera anicteric Neck: no JVD, supple Respiratory: no wheezing, no rales, no rhonchi Cardiovascular: RRR, no significant murmur, no rub Gastrointestinal: soft, non-tender, no distention, positive bowel sounds Musculoskeletal: no edema, pulses present right side weakness, aphasia Lymphatic: no nodes Psychiatric: normal affect, A&O x 3 Skin: no rash, normal turgor Dx/Plan (1) Acute ischemic left middle cerebral artery (MCA) stroke Code(s): I63.512 - CEREB INFRC D/T UNSP OCCLS OR STENOS OF LEFT MID CEREB ART Status: Acute Comment: s/p TPA (2) Amphetamine abuse Code(s): F15.10 - OTHER STIMULANT ABUSE, UNCOMPLICATED Status: Acute (3) Macrocytic anemia Code(s): D53.9 - NUTRITIONAL ANEMIA, UNSPECIFIED Status: Acute - Plan cont current plan of care, PT/OT, social work specialist, speech therapy, DVT proph w/ lovenox * medication reviewed as below * symptomatic treatment * continue stroke team evaluation * will need placement. Review of Systems - Review of Systems Other: not reliable due to his aphasia - Medications/Allergies Allergies/Adverse Reactions: Allergies Allergy/AdvReac Type Severity Reaction Status Date / Time No Known Allergies Allergy Unverified 09/27/18 16:04 Medications: Current Medications Acetaminophen (Tylenol) 1,000 mg PO Q6H PRN PRN Reason: Mild Pain (1-3) Al Hydroxide/Mg Hydroxide (Maalox) 30 ml PO QID-WM PRN PRN Reason: Dyspepsia Artificial Tears (Tears Naturale) 2 drop EA EYE PRN PRN PRN Reason: Dry Eyes Aspirin (Aspirin) 325 mg PO DAILY [facility] Last Admin: 10/01/18 09:38 Dose: 325 mg Atorvastatin Calcium (Lipitor) 40 mg PO HS [facility] Last Admin: 09/30/18 21:05 Dose: 40 mg Bisacodyl (Dulcolax) 10 mg [place] DAILYPRN PRN PRN Reason: Constipation Bisacodyl (Dulcolax) 10 mg [place] DAILYPRN PRN PRN Reason: Constipation Docusate Sodium (Colace) 100 mg PO BIDPRN PRN PRN Reason: Constipation Enoxaparin Sodium (Lovenox) 40 mg SC 0900 [facility] Last Admin: 10/01/18 09:38 Dose: 40 mg Guaifenesin (Robitussin Sf) 200 mg PO Q4H PRN PRN Reason: Cough Hydralazine HCl (Apresoline) 10 mg SLOW IVP Q4H PRN PRN Reason: SBP > 180 and HR < 70 Sodium Chloride (Normal Saline 0.9%) 1,000 mls @ 80 mls/hr IV .[id number] [facility] Last Admin: 10/01/18 05:44 Dose: 1,000 mls Labetalol HCl (Normodyne) 10 mg SLOW IVP Q2H PRN PRN Reason: SBP > 180 or DBP > 105 Loperamide HCl (Imodium) 2 mg PO PRN PRN PRN Reason: Diarrhea/Loose Stools Loratadine (Claritin) 10 mg PO DAILYPRN PRN PRN Reason: Sinus Symptoms Ondansetron HCl (Zofran) 4 mg IVP Q6H PRN PRN Reason: Nausea/Vomiting Ondansetron HCl (Zofran Odt) 4 mg PO Q6H PRN PRN Reason: Nausea/Vomiting Senna/Docusate Sodium (Senokot S) 2 tab PO BID PRN PRN Reason: Constipation Sodium Chloride ([place] Nasal [place] 0.65%) 0 ml EA NARE QIDPRN PRN PRN Reason: Nasal Congestion Sodium Chloride (Flush - Normal Saline) 10 ml IVF Q12HR [facility] Last Admin: 10/01/18 09:41 Dose: Not Given Sodium Chloride (Flush - Normal Saline) 10 ml IVF PRN PRN PRN Reason: Saline Flush Throat Lozenges (Cepastat Lozenges) 1 jessica PO Q2H PRN PRN Reason: Sore Throat
[2018-10-01] MEDS: Atorvastatin Calcium 40 MG TAB PO SCH (21:20)
[2018-10-02] MEDS: Aspirin 325 MG TAB PO SCH (08:35)
[2018-10-02] MEDS: Enoxaparin Sodium 40 MG/0.4 ML SYRINGE SC SCH (08:35)
[2018-10-02] MEDS: Sodium Chloride 0.9% 1,000 ML IV SCH (09:36)
--- NOTE | 2018-10-02 11:47 | PDOC.PN ---
- Subjective Encounter Start Date: 10/02/18 Encounter Start Time: 07:30 Patient seen and examined. No new complaints. No overnight events pt is tolerating modified diet - Objective Resuscitation Status - Order Detail: 10/01/18 11:19 Resuscitation Status Routine Resuscitation Status: FULL: Full Resuscitation MAR Reviewed: Yes Vital Signs & Weight: Vital Signs (12 hours) Temp Pulse Resp BP Pulse Ox 10/02/18 08:35 98 10/02/18 08:32 98 10/02/18 07:48 98 F 66 16 112/71 98 10/02/18 04:55 98.7 F 67 16 95/58 L 94 L 10/02/18 00:00 98.7 F 67 16 106/72 95 Weight Admit Weight 151 lb 0.266 oz Weight 147 lb 5 oz Most Recent Monitor Data Heart Rate from ECG 73 NIBP 125/85 NIBP BP-Mean 98 Respiration from ECG 15 SpO2 100 I&O: 10/01/18 10/02/18 10/03/18 06:59 06:59 06:59 Intake Total 1827 100 335 Output Total 700 Balance 1127 100 335 Result Diagrams: 09/28/18 03:30 09/27/18 15:58 EKG Reviewed by me: Yes (nsr) Phys Exam - Physical Examination Constitutional: NAD HEENT: PERRLA, moist MMs, sclera anicteric Neck: no JVD, supple Respiratory: no wheezing, no rales, no rhonchi Cardiovascular: RRR, no significant murmur, no rub Gastrointestinal: soft, non-tender, no distention, positive bowel sounds Musculoskeletal: no edema, pulses present right side weakness, aphasia Lymphatic: no nodes Psychiatric: normal affect Skin: no rash, normal turgor Dx/Plan (1) Acute ischemic left middle cerebral artery (MCA) stroke Code(s): I63.512 - CEREB INFRC D/T UNSP OCCLS OR STENOS OF LEFT MID CEREB ART Status: Acute Comment: s/p TPA (2) Amphetamine abuse Code(s): F15.10 - OTHER STIMULANT ABUSE, UNCOMPLICATED Status: Acute (3) Macrocytic anemia Code(s): D53.9 - NUTRITIONAL ANEMIA, UNSPECIFIED Status: Acute - Plan cont current plan of care, PT/OT, social work nurse, speech therapy, DVT proph w/ lovenox * overall stable medically * continue PT/OT/ST * he will need [facility] placement as he has no funding * medication reviewed as below * symptomatic treatment * DC IVF today Review of Systems - Review of Systems Other: unable to review due to aphasia - Medications/Allergies Allergies/Adverse Reactions: Allergies Allergy/AdvReac Type Severity Reaction Status Date / Time No Known Allergies Allergy Unverified 09/27/18 16:04 Medications: Current Medications Acetaminophen (Tylenol) 1,000 mg PO Q6H PRN PRN Reason: Mild Pain (1-3) Al Hydroxide/Mg Hydroxide (Maalox) 30 ml PO QID-WM PRN PRN Reason: Dyspepsia Artificial Tears (Tears Naturale) 2 drop EA EYE PRN PRN PRN Reason: Dry Eyes Aspirin (Aspirin) 325 mg PO DAILY [facility] Last Admin: 10/02/18 08:35 Dose: 325 mg Atorvastatin Calcium (Lipitor) 40 mg PO HS [facility] Last Admin: 10/01/18 21:20 Dose: 40 mg Bisacodyl (Dulcolax) 10 mg [place] DAILYPRN PRN PRN Reason: Constipation Bisacodyl (Dulcolax) 10 mg [place] DAILYPRN PRN PRN Reason: Constipation Docusate Sodium (Colace) 100 mg PO BIDPRN PRN PRN Reason: Constipation Enoxaparin Sodium (Lovenox) 40 mg SC 0900 [facility] Last Admin: 10/02/18 08:35 Dose: 40 mg Guaifenesin (Robitussin Sf) 200 mg PO Q4H PRN PRN Reason: Cough Hydralazine HCl (Apresoline) 10 mg SLOW IVP Q4H PRN PRN Reason: SBP > 180 and HR < 70 Labetalol HCl (Normodyne) 10 mg SLOW IVP Q2H PRN PRN Reason: SBP > 180 or DBP > 105 Loperamide HCl (Imodium) 2 mg PO PRN PRN PRN Reason: Diarrhea/Loose Stools Loratadine (Claritin) 10 mg PO DAILYPRN PRN PRN Reason: Sinus Symptoms Ondansetron HCl (Zofran) 4 mg IVP Q6H PRN PRN Reason: Nausea/Vomiting Ondansetron HCl (Zofran Odt) 4 mg PO Q6H PRN PRN Reason: Nausea/Vomiting Senna/Docusate Sodium (Senokot S) 2 tab PO BID PRN PRN Reason: Constipation Sodium Chloride ([place] Nasal [place] 0.65%) 0 ml EA NARE QIDPRN PRN PRN Reason: Nasal Congestion Sodium Chloride (Flush - Normal Saline) 10 ml IVF Q12HR [facility] Last Admin: 10/02/18 09:36 Dose: Not Given Sodium Chloride (Flush - Normal Saline) 10 ml IVF PRN PRN PRN Reason: Saline Flush Throat Lozenges (Cepastat Lozenges) 1 jessica PO Q2H PRN PRN Reason: Sore Throat
[2018-10-02] MEDS: Atorvastatin Calcium 40 MG TAB PO SCH (21:25)
[2018-10-03] MEDS: Aspirin 325 MG TAB PO SCH (08:41)
[2018-10-03] MEDS: Enoxaparin Sodium 40 MG/0.4 ML SYRINGE SC SCH (08:41)
--- NOTE | 2018-10-03 11:29 | PDOC.PN ---
- Subjective Encounter Start Date: 10/03/18 Encounter Start Time: 07:45 Patient seen and examined. No new complaints. No overnight events - Objective Resuscitation Status - Order Detail: 10/01/18 11:19 Resuscitation Status Routine Resuscitation Status: FULL: Full Resuscitation MAR Reviewed: Yes Vital Signs & Weight: Vital Signs (12 hours) Temp Pulse Resp BP BP Pulse Ox 10/03/18 07:25 98.2 F 83 12 103/61 96 10/03/18 04:00 97.0 F L 74 12 97/63 95 10/03/18 00:00 98.5 F 70 12 101/67 100 Weight Admit Weight 151 lb 0.266 oz Weight 147 lb 7 oz Most Recent Monitor Data Heart Rate from ECG 73 NIBP 125/85 NIBP BP-Mean 98 Respiration from ECG 15 SpO2 100 I&O: 10/02/18 10/03/18 10/04/18 06:59 06:59 06:59 Intake Total 100 1638 Balance 100 1638 Result Diagrams: 09/28/18 03:30 09/27/18 15:58 EKG Reviewed by me: Yes Phys Exam - Physical Examination Constitutional: NAD HEENT: PERRLA, moist MMs, sclera anicteric Neck: no JVD, supple Respiratory: no wheezing, no rales, no rhonchi Cardiovascular: RRR, no significant murmur, no rub Gastrointestinal: soft, non-tender, no distention, positive bowel sounds Musculoskeletal: no edema, pulses present right side weakness,aphasia Lymphatic: no nodes Psychiatric: normal affect, A&O x 3 Dx/Plan (1) Acute ischemic left middle cerebral artery (MCA) stroke Code(s): I63.512 - CEREB INFRC D/T UNSP OCCLS OR STENOS OF LEFT MID CEREB ART Status: Acute Comment: s/p TPA (2) Amphetamine abuse Code(s): F15.10 - OTHER STIMULANT ABUSE, UNCOMPLICATED Status: Acute (3) Macrocytic anemia Code(s): D53.9 - NUTRITIONAL ANEMIA, UNSPECIFIED Status: Acute - Plan cont current plan of care, PT/OT, family welfare social work professor, speech therapy, DVT proph w/ lovenox * medication reviewed as below * symptomatic treatment * await placement * stroke team evaluation daily. Review of Systems - Review of Systems ENT: negative: Ear Pain, Ear Discharge, Nose Pain, Nose Discharge, Nose Congestion, Mouth Pain, Mouth Swelling, Throat Pain, Throat Swelling, Other Respiratory: negative: Cough, Dry, Shortness of Breath, Hemoptysis, SOB with Excertion, Pleuritic Pain, Sputum, Wheezing Cardiovascular: negative: chest pain, palpitations, orthopnea, paroxysmal nocturnal dyspnea, edema, light headedness, other Gastrointestinal: negative: Nausea, Vomiting, Abdominal Pain, Diarrhea, Constipation, Melena, Hematochezia, Other Genitourinary: negative: Dysuria, Frequency, Incontinence, Hematuria, Retention , Other Musculoskeletal: negative: Neck Pain, Shoulder Pain, Arm Pain, Back Pain, Hand Pain, Leg Pain, Foot Pain, Other Other: pt has aphasia but nodes to yes or no - Medications/Allergies Allergies/Adverse Reactions: Allergies Allergy/AdvReac Type Severity Reaction Status Date / Time No Known Allergies Allergy Unverified 09/27/18 16:04 Medications: Current Medications Acetaminophen (Tylenol) 1,000 mg PO Q6H PRN PRN Reason: Mild Pain (1-3) Al Hydroxide/Mg Hydroxide (Maalox) 30 ml PO QID-WM PRN PRN Reason: Dyspepsia Artificial Tears (Tears Naturale) 2 drop EA EYE PRN PRN PRN Reason: Dry Eyes Aspirin (Aspirin) 325 mg PO DAILY [facility] Last Admin: 10/03/18 08:41 Dose: 325 mg Atorvastatin Calcium (Lipitor) 40 mg PO HS [facility] Last Admin: 10/02/18 21:25 Dose: 40 mg Bisacodyl (Dulcolax) 10 mg [place] DAILYPRN PRN PRN Reason: Constipation Bisacodyl (Dulcolax) 10 mg [place] DAILYPRN PRN PRN Reason: Constipation Docusate Sodium (Colace) 100 mg PO BIDPRN PRN PRN Reason: Constipation Enoxaparin Sodium (Lovenox) 40 mg SC 0900 [facility] Last Admin: 10/03/18 08:41 Dose: 40 mg Guaifenesin (Robitussin Sf) 200 mg PO Q4H PRN PRN Reason: Cough Hydralazine HCl (Apresoline) 10 mg SLOW IVP Q4H PRN PRN Reason: SBP > 180 and HR < 70 Labetalol HCl (Normodyne) 10 mg SLOW IVP Q2H PRN PRN Reason: SBP > 180 or DBP > 105 Loperamide HCl (Imodium) 2 mg PO PRN PRN PRN Reason: Diarrhea/Loose Stools Loratadine (Claritin) 10 mg PO DAILYPRN PRN PRN Reason: Sinus Symptoms Ondansetron HCl (Zofran) 4 mg IVP Q6H PRN PRN Reason: Nausea/Vomiting Ondansetron HCl (Zofran Odt) 4 mg PO Q6H PRN PRN Reason: Nausea/Vomiting Senna/Docusate Sodium (Senokot S) 2 tab PO BID PRN PRN Reason: Constipation Sodium Chloride ([place] Nasal [place] 0.65%) 0 ml EA NARE QIDPRN PRN PRN Reason: Nasal Congestion Sodium Chloride (Flush - Normal Saline) 10 ml IVF Q12HR [facility] Last Admin: 10/03/18 08:42 Dose: Not Given Sodium Chloride (Flush - Normal Saline) 10 ml IVF PRN PRN PRN Reason: Saline Flush Throat Lozenges (Cepastat Lozenges) 1 jessica PO Q2H PRN PRN Reason: Sore Throat
[2018-10-03] MEDS: Atorvastatin Calcium 40 MG TAB PO SCH (20:41)
[2018-10-04] MEDS: Enoxaparin Sodium 40 MG/0.4 ML SYRINGE SC SCH (08:24)
[2018-10-04] MEDS: Aspirin 325 MG TAB PO SCH (08:25)
[2018-10-04] MEDS: Folic Acid 1 MG TAB PO SCH (08:26)
[2018-10-04] MEDS: Cyanocobalamin (Vitamin B-12) 1,000 MCG TAB PO SCH (08:26)
[2018-10-04] MEDS: Thiamine 100 MG TAB PO SCH (08:26)
[2018-10-04] MEDS: Multivitamin W/ Minerals 1 TAB PO SCH (08:26)
--- NOTE | 2018-10-04 10:34 | PDOC.PN ---
- Subjective Encounter Start Date: 10/04/18 Encounter Start Time: 07:10 Patient seen and examined. No new complaints. No overnight events - Objective Resuscitation Status - Order Detail: 10/01/18 11:19 Resuscitation Status Routine Resuscitation Status: FULL: Full Resuscitation MAR Reviewed: Yes Vital Signs & Weight: Vital Signs (12 hours) Temp Pulse Resp BP BP Pulse Ox 10/04/18 08:14 98 10/04/18 07:35 97.7 F 72 16 101/66 98 10/04/18 04:50 98/67 10/04/18 04:44 97.9 F 80 18 86/47 L 99 10/04/18 01:30 99/68 10/04/18 01:06 98.3 F 89 18 83/55 L 98 Weight Admit Weight 151 lb 0.266 oz Weight 146 lb 9 oz Most Recent Monitor Data Heart Rate from ECG 73 NIBP 125/85 NIBP BP-Mean 98 Respiration from ECG 15 SpO2 100 I&O: 10/03/18 10/04/18 10/05/18 06:59 06:59 06:59 Intake Total 1638 813 Balance 1638 813 Result Diagrams: 09/28/18 03:30 09/27/18 15:58 EKG Reviewed by me: Yes Phys Exam - Physical Examination Constitutional: NAD HEENT: PERRLA, moist MMs, sclera anicteric Neck: no JVD, supple Respiratory: no wheezing, no rales, no rhonchi Cardiovascular: RRR, no significant murmur, no rub Gastrointestinal: soft, non-tender, no distention, positive bowel sounds Musculoskeletal: no edema, pulses present right side weakness, aphasia Lymphatic: no nodes Psychiatric: normal affect, A&O x 3 Skin: no rash, normal turgor Dx/Plan (1) Acute ischemic left middle cerebral artery (MCA) stroke Code(s): I63.512 - CEREB INFRC D/T UNSP OCCLS OR STENOS OF LEFT MID CEREB ART Status: Acute Comment: s/p TPA (2) Amphetamine abuse Code(s): F15.10 - OTHER STIMULANT ABUSE, UNCOMPLICATED Status: Acute (3) Macrocytic anemia Code(s): D53.9 - NUTRITIONAL ANEMIA, UNSPECIFIED Status: Acute - Plan 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 Review of Systems - Review of Systems Constitutional: negative: fever, chills, sweats, weakness, malaise, other Eyes: negative: Pain, Vision Change, Conjunctivae Inflammation, Eyelid Inflammation, Redness, Other ENT: negative: Ear Pain, Ear Discharge, Nose Pain, Nose Discharge, Nose Congestion, Mouth Pain, Mouth Swelling, Throat Pain, Throat Swelling, Other Respiratory: negative: Cough, Dry, Shortness of Breath, Hemoptysis, SOB with Excertion, Pleuritic Pain, Sputum, Wheezing Cardiovascular: negative: chest pain, palpitations, orthopnea, paroxysmal nocturnal dyspnea, edema, light headedness, other Gastrointestinal: negative: Nausea, Vomiting, Abdominal Pain, Diarrhea, Constipation, Melena, Hematochezia, Other Genitourinary: negative: Dysuria, Frequency, Incontinence, Hematuria, Retention , Other Musculoskeletal: negative: Neck Pain, Shoulder Pain, Arm Pain, Back Pain, Hand Pain, Leg Pain, Foot Pain, Other Skin: negative: Rash, Lesions, [place], Bruising, Other Neurological: Weakness, Change in Speech. negative: Numbness, Incoordination, Confusion, Seizures, Other - Medications/Allergies Allergies/Adverse Reactions: Allergies Allergy/AdvReac Type Severity Reaction Status Date / Time No Known Allergies Allergy Unverified 09/27/18 16:04 Medications: Current Medications Acetaminophen (Tylenol) 1,000 mg PO Q6H PRN PRN Reason: Mild Pain (1-3) Al Hydroxide/Mg Hydroxide (Maalox) 30 ml PO QID-WM PRN PRN Reason: Dyspepsia Artificial Tears (Tears Naturale) 2 drop EA EYE PRN PRN PRN Reason: Dry Eyes Aspirin (Aspirin) 325 mg PO DAILY [facility] Last Admin: 10/04/18 08:25 Dose: 325 mg Atorvastatin Calcium (Lipitor) 40 mg PO HS [facility] Last Admin: 10/03/18 20:41 Dose: 40 mg Bisacodyl (Dulcolax) [address] DAILYPRN PRN PRN Reason: Constipation Bisacodyl (Dulcolax) [address] DAILYPRN PRN PRN Reason: Constipation Cyanocobalamin (Vitamin B-12) 1,000 mcg PO DAILY [facility] Last Admin: 10/04/18 08:26 Dose: 1,000 mcg Docusate Sodium (Colace) 100 mg PO BIDPRN PRN PRN Reason: Constipation Enoxaparin Sodium (Lovenox) 40 mg SC 0900 [facility] Last Admin: 10/04/18 08:24 Dose: 40 mg Folic Acid (Folvite) 1 mg PO DAILY [facility] Last Admin: 10/04/18 08:26 Dose: 1 mg Guaifenesin (Robitussin Sf) 200 mg PO Q4H PRN PRN Reason: Cough Hydralazine HCl (Apresoline) 10 mg SLOW IVP Q4H PRN PRN Reason: SBP > 180 and HR < 70 Iron/Minerals/Multivitamins (Theragran M) 1 tab PO DAILY [facility] Last Admin: 10/04/18 08:26 Dose: 1 tab Labetalol HCl (Normodyne) 10 mg SLOW IVP Q2H PRN PRN Reason: SBP > 180 or DBP > 105 Loperamide HCl (Imodium) 2 mg PO PRN PRN PRN Reason: Diarrhea/Loose Stools Loratadine (Claritin) 10 mg PO DAILYPRN PRN PRN Reason: Sinus Symptoms Ondansetron HCl (Zofran) 4 mg IVP Q6H PRN PRN Reason: Nausea/Vomiting Ondansetron HCl (Zofran Odt) 4 mg PO Q6H PRN PRN Reason: Nausea/Vomiting Senna/Docusate Sodium (Senokot S) 2 tab PO BID PRN PRN Reason: Constipation Sodium Chloride ([place] Nasal [place] 0.65%) 0 ml EA NARE QIDPRN PRN PRN Reason: Nasal Congestion Sodium Chloride (Flush - Normal Saline) 10 ml IVF Q12HR [facility] Last Admin: 10/04/18 08:26 Dose: Not Given Sodium Chloride (Flush - Normal Saline) 10 ml IVF PRN PRN PRN Reason: Saline Flush Thiamine HCl (Thiamine) 100 mg PO DAILY [facility] Last Admin: 10/04/18 08:26 Dose: 100 mg Throat Lozenges (Cepastat Lozenges) 1 jessica PO Q2H PRN PRN Reason: Sore Throat
[2018-10-04 13:28] VITALS: BMI 20.2
[2018-10-04] MEDS: Atorvastatin Calcium 40 MG TAB PO SCH (23:15)
[2018-10-05 07:00] LABS: #Eosinphils 0.1 thou/uL (0.0-0.7); #Lymphocytes 1.6 thou/uL (1.20-3.40); #Monocytes 0.3 thou/uL (0.11-0.59); #Neutrophils 3.4 thou/uL (1.40-6.50); %Basophils 0.6 % (0.0-1.0); %Eosinophils 2.4 % (0.0-10.0); %Lymphocytes 28.5 % (21.0-51.0); %Monocytes 6.2 % (0.0-10.0); %Neutrophils 62.2 % (42.0-75.0); Hemoglobin 14.8 g/dL (14.0-18.0); Mean Corpuscular HGB CONC 34.1 g/dL (32.0-36.0); Mean Corpuscular Hemoglobin 38.4 pg (27.0-31.0); Mean Platelet Volume 7.8 fL (7.4-10.4); Platelet Count 289 thou/uL (130-400); RBC Distribution Width 14.1 % (11.5-14.5); Red Blood Cell (RBC) Count 3.86 mill/uL (4.70-6.10); White Blood Cell (WBC) Count 5.5 thou/uL (4.8-10.8)
[2018-10-05 07:21] LABS: Anion Gap 12 mmol/L (10-20); BUN (Urea Nitrogen) 17 mg/dL (8.9-20.6); Calc. Creatinine Clearance 100 mL/min (70-130); Calcium 9.8 mg/dL (7.8-10.44); Carbon Dioxide 33 mmol/L (22-29); Chloride 96 mmol/L (98-107); Estimated GFR-MDRD Greater than 90; Glucose 95 mg/dL (70-105); Potassium 4.1 mmol/L (3.5-5.1); Sodium 137 mmol/L (136-145)
[2018-10-05] MEDS: Aspirin 325 MG TAB PO SCH (09:16)
[2018-10-05] MEDS: Folic Acid 1 MG TAB PO SCH (09:16)
[2018-10-05] MEDS: Multivitamin W/ Minerals 1 TAB PO SCH (09:16)
[2018-10-05] MEDS: Cyanocobalamin (Vitamin B-12) 1,000 MCG TAB PO SCH (09:16)
[2018-10-05] MEDS: Thiamine 100 MG TAB PO SCH (09:16)
[2018-10-05] MEDS: Enoxaparin Sodium 40 MG/0.4 ML SYRINGE SC SCH (09:16)
--- NOTE | 2018-10-05 12:49 | PDOC.PN ---
- Subjective Encounter Start Date: 10/05/18 Encounter Start Time: 10:15 Patient seen and examined. No new complaints. No overnight events - Objective Resuscitation Status - Order Detail: 10/01/18 11:19 Resuscitation Status Routine Resuscitation Status: FULL: Full Resuscitation MAR Reviewed: Yes Vital Signs & Weight: Vital Signs (12 hours) Temp Pulse Pulse Pulse Resp BP BP 10/05/18 11:43 98.3 F 87 16 10/05/18 08:36 86 77 117/73 102/71 10/05/18 08:00 97.6 F 84 14 10/05/18 04:00 97.5 F L 80 16 BP Pulse Ox 10/05/18 11:43 104/58 L 96 10/05/18 08:36 10/05/18 08:00 102/71 96 10/05/18 04:00 91/60 96 Weight Admit Weight 151 lb 0.266 oz Weight 1466 lb Most Recent Monitor Data Heart Rate from ECG 73 NIBP 125/85 NIBP BP-Mean 98 Respiration from ECG 15 SpO2 100 I&O: 10/04/18 10/05/18 10/06/18 06:59 06:59 06:59 Intake Total 813 840 Balance 813 840 Result Diagrams: 10/05/18 06:37 10/05/18 06:37 EKG Reviewed by me: Yes Phys Exam - Physical Examination Constitutional: NAD HEENT: PERRLA, moist MMs, sclera anicteric Neck: no JVD, supple Respiratory: no wheezing, no rales, no rhonchi Cardiovascular: RRR, no significant murmur, no rub Gastrointestinal: soft, non-tender, no distention, positive bowel sounds Musculoskeletal: no edema, pulses present right side weakness Psychiatric: normal affect, A&O x 3 Skin: no rash, normal turgor Dx/Plan (1) Acute ischemic left middle cerebral artery (MCA) stroke Code(s): I63.512 - CEREB INFRC D/T UNSP OCCLS OR STENOS OF LEFT MID CEREB ART Status: Acute Comment: s/p TPA (2) Amphetamine abuse Code(s): F15.10 - OTHER STIMULANT ABUSE, UNCOMPLICATED Status: Acute (3) Macrocytic anemia Code(s): D53.9 - NUTRITIONAL ANEMIA, UNSPECIFIED Status: Acute - Plan cont current plan of care, 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 Review of Systems - Review of Systems ENT: negative: Ear Pain, Ear Discharge, Nose Pain, Nose Discharge, Nose Congestion, Mouth Pain, Mouth Swelling, Throat Pain, Throat Swelling, Other Respiratory: negative: Cough, Dry, Shortness of Breath, Hemoptysis, SOB with Excertion, Pleuritic Pain, Sputum, Wheezing Cardiovascular: negative: chest pain, palpitations, orthopnea, paroxysmal nocturnal dyspnea, edema, light headedness, other Gastrointestinal: negative: Nausea, Vomiting, Abdominal Pain, Diarrhea, Constipation, Melena, Hematochezia, Other Genitourinary: negative: Dysuria, Frequency, Incontinence, Hematuria, Retention , Other Musculoskeletal: negative: Neck Pain, Shoulder Pain, Arm Pain, Back Pain, Hand Pain, Leg Pain, Foot Pain, Other - Medications/Allergies Allergies/Adverse Reactions: Allergies Allergy/AdvReac Type Severity Reaction Status Date / Time No Known Allergies Allergy Unverified 09/27/18 16:04 Medications: Current Medications Acetaminophen (Tylenol) 1,000 mg PO Q6H PRN PRN Reason: Mild Pain (1-3) Al Hydroxide/Mg Hydroxide (Maalox) 30 ml PO QID-WM PRN PRN Reason: Dyspepsia Artificial Tears (Tears Naturale) 2 drop EA EYE PRN PRN PRN Reason: Dry Eyes Aspirin (Aspirin) 325 mg PO DAILY [facility] Last Admin: 10/05/18 09:16 Dose: 325 mg Atorvastatin Calcium (Lipitor) 40 mg PO HS [facility] Last Admin: 10/04/18 23:15 Dose: 40 mg Bisacodyl (Dulcolax) 10 mg [place] DAILYPRN PRN PRN Reason: Constipation Bisacodyl (Dulcolax) 10 mg [place] DAILYPRN PRN PRN Reason: Constipation Cyanocobalamin (Vitamin B-12) 1,000 mcg PO DAILY [facility] Last Admin: 10/05/18 09:16 Dose: 1,000 mcg Docusate Sodium (Colace) 100 mg PO BIDPRN PRN PRN Reason: Constipation Enoxaparin Sodium (Lovenox) 40 mg SC 0900 [facility] Last Admin: 10/05/18 09:16 Dose: 40 mg Folic Acid (Folvite) 1 mg PO DAILY [facility] Last Admin: 10/05/18 09:16 Dose: 1 mg Guaifenesin (Robitussin Sf) 200 mg PO Q4H PRN PRN Reason: Cough Hydralazine HCl (Apresoline) 10 mg SLOW IVP Q4H PRN PRN Reason: SBP > 180 and HR < 70 Iron/Minerals/Multivitamins (Theragran M) 1 tab PO DAILY [facility] Last Admin: 10/05/18 09:16 Dose: 1 tab Labetalol HCl (Normodyne) 10 mg SLOW IVP Q2H PRN PRN Reason: SBP > 180 or DBP > 105 Loperamide HCl (Imodium) 2 mg PO PRN PRN PRN Reason: Diarrhea/Loose Stools Loratadine (Claritin) 10 mg PO DAILYPRN PRN PRN Reason: Sinus Symptoms Ondansetron HCl (Zofran) 4 mg IVP Q6H PRN PRN Reason: Nausea/Vomiting Ondansetron HCl (Zofran Odt) 4 mg PO Q6H PRN PRN Reason: Nausea/Vomiting Senna/Docusate Sodium (Senokot S) 2 tab PO BID PRN PRN Reason: Constipation Sodium Chloride ([place] Nasal [place] 0.65%) 0 ml EA NARE QIDPRN PRN PRN Reason: Nasal Congestion Sodium Chloride (Flush - Normal Saline) 10 ml IVF Q12HR [facility] Last Admin: 10/05/18 09:17 Dose: Not Given Sodium Chloride (Flush - Normal Saline) 10 ml IVF PRN PRN PRN Reason: Saline Flush Thiamine HCl (Thiamine) 100 mg PO DAILY [facility] Last Admin: 10/05/18 09:16 Dose: 100 mg Throat Lozenges (Cepastat Lozenges) 1 jessica PO Q2H PRN PRN Reason: Sore Throat
[2018-10-05 15:29] VITALS: BP 105/68; TEMP 97.4
--- NOTE | 2018-10-06 12:34 | DIS ---
DATE OF ADMISSION: 09/27/2018 DATE OF DISCHARGE: 10/05/2018 DISCHARGE DISPOSITION: long-term. PRIMARY DISCHARGE DIAGNOSES: 1. Acute cerebrovascular accident. 2. Amphetamine abuse. SECONDARY DISCHARGE DIAGNOSES: 1. Macrocytic anemia. 2. Dyslipidemia. PRIMARY PROCEDURE/OPERATION: None. RADIOLOGICAL INVESTIGATION: CT [place], CT brain, echocardiography. SIGNIFICANT LABORATORY DATA: WBC 5.5, hemoglobin 14.8, platelet 289. INR 1.2. Creatinine 0.87. LDL 101. LFT normal. Urine drug screen positive for amphetamine and methamphetamine. DISCHARGE MEDICATIONS: 1. Aspirin 325 mg p.o. daily. 2. Lipitor 40 mg p.o. at bedtime. 3. Vitamin B12 of 1000 mcg p.o. daily. 4. Folic acid 1 mg p.o. daily. 5. Thiamine 100 mg p.o. daily. 6. Multivitamin 1 tablet p.o. daily. 7. Pepcid 20 mg p.o. b.i.d. CONTRAINDICATION: None. CODE STATUS: Full code. INPATIENT CONFERENCE SERVICES COORDINATOR: Neurology was consulted while in hospital. Dr. Jc was consulted while in hospital. Dr. [place] was following while in hospital. TEST RESULTS PENDING ON DISCHARGE: None. ALLERGIES: NO KNOWN DRUG ALLERGIES. DISCHARGE PLAN: Post hospital, the patient will follow up with primary care physician. HOSPITAL COURSE: A 48-year-old male, who was admitted by neurosurgeon. The patient was having acute stroke. He was given tPA. Subsequently, he was taken for angiography, but he did not have any blood clot, and that is why he did not require any Liya procedure. He stayed in ICU postprocedure for 24 hours. He had aphasia and right-sided weakness. After close observation in CCU, the patient was transferred to stroke floor. This patient required placement as he has no funding and that is why he remained in hospital for longer. Ultimately, with help of case resolution specialist, we arranged a [place] bed. This patient was hypotensive while in hospital, and he did not require any antihypertensive medication, but we started above-mentioned medication to prevent future stroke. By the time of discharge, the patient has some improvement, but he will need PT, OT, speech therapy. I have seen and examined the patient bedside on the day of discharge. Please see my progress note from that day. Job ID: [id number]
== END 2018-10-05 18:21 | DRG 62 ==
LOC: ERS 13:28 → CCL 14:50 → CCU 14:50 → 2SE 09-30 18:07
PROVIDERS: ADMIT Neurological Surgery; ATTEND Internal Medicine
PROC: 3E03317 Introduction of Other Thrombolytic into Peripheral Vein, Percutaneous Approach (ICD-10-PCS; principal; 2018-09-27)
PROC: B31R1ZZ Fluoroscopy of Intracranial Arteries using Low Osmolar Contrast (ICD-10-PCS; 2018-09-27)
DX: I63.312 Cerebral infarction due to thrombosis of left middle cerebral artery (principal); G81.91 Hemiplegia, unspecified affecting right dominant side; R47.01 Aphasia; F15.10 Other stimulant abuse, uncomplicated; D53.9 Nutritional anemia, unspecified
CPT/HCPCS: 36224; 36415; 36416; 70450; 70496; 70498; 80048; 80053; 80061; 80306; 84484; 85025; 85610; 85730; 93005; 93306; 96365; 96376; C1887; J1644; J1650; J2001; J2370; J2997; J3010; Q9966; Q9967